=== PATIENT | female | born 1965 | race Two or more races ===

== ENCOUNTER → 2025-02-05 | Outpatient (CLI) | payer MEDICAID, SELFPAY ==
--- NOTE | 2025-02-05 07:00 | XR_ITS ---
Examination: MRI cervical spine without intravenous contrast Date and time of exam: February 05, 2025 0702 hours INDICATIONS: Right-sided neck pain beginning 6 months ago Technique: Multiple axial and sagittal sections of the cervical spine to been obtained. T2 weighted sagittal sections, TR 3, 270, TE 117 T1-weighted sagittal sections, TR 500, TE 11 T1-weighted axial sections, TR 607, TE 12, axial sections TR 18, TE 27 and T2 weighted transverse sections, TR 3920, TE 122. Findings: Mild chronic wedging C6 No acute cervical fracture Intact odontoid Diffuse cervical disc desiccation Moderate to advanced disc narrowing C4-C5, C5-C6, C6-C7 No localized enlargement cervical cord C2-C3 no disc protrusion C3-C4 left uncinate process hypertrophy with moderate narrowing left neural foraminal stenosis C4-C5 2 mm central subarticular osteophyte disc complex, moderate bilateral neural foraminal stenosis C5-C6 right uncinate process hypertrophy moderate right neural foraminal stenosis C6-C7 moderate bilateral neural foraminal stenosis C7-T1 moderate left neural foraminal stenosis IMPRESSION: Moderate to advanced degenerative disc disease C4-C5, C5-C6, C6-C7 C3-C4, C7-T1 moderate left neural foraminal stenosis C4-C5, C6-C7 moderate bilateral neural foraminal stenosis C5-C6 moderate right neural foraminal stenosis
== END | disposition home or self-care (01) ==
LOC: SMRI 06:40
PROVIDERS: Referring Provider Nurse Practitioner; Visit Provider Nurse Practitioner
DX: M50.321 Other cervical disc degeneration at C4-C5 level (principal); M48.02 Spinal stenosis, cervical region
CPT/HCPCS: 72141

== ENCOUNTER 2025-07-12 16:00 | Outpatient (RCR) | payer MEDICAID, SELFPAY ==
--- NOTE | 2025-06-30 13:47 | PTNOTE_ITS ---
PT OP Initial Eval Patient Information Outpatient Physical Therapy Treatment Date: 06/30/25 Visit Reasons: Cervicalgia Medical Diagnosis: M54.2 Treatment Dx #1: neck pain Start of Care: 06/30/25 Date of Onset: 8 months ago Smoking Status Smoking Status: Current some day smoker Cessation Counseling Provided: FRANK was advised that quitting smoking is the single most important factor to protect the health of themselves and their family. Discussed the benefits of quitting smoking with patient. Encouraged patient to quit smoking and provided Cessation assistance materials and resources. Tobacco Use: Cigarette Years smoked: 30 Are you interested in quitting?: Yes Would you like additional Smoking Cessation Counseling?: No Initial Assessment Subjective: Pt is 60 yr old female who c/o neck pain. Her head started leaning to the R 8 months ago and it hurts to turn the head. Increased pain with neck movements and HH chores and the pain goes into the top of the R shoulder but denies hand pain and numbness. PMH: HTN, thyroidism Imaging: MRI of C/S Moderate to advanced degenerative disc disease C4-C5, C5- C6, C6-C7, C3-C4, C7-T1 moderate left neural foraminal stenosis,C4-C5, C6-C7 moderate bilateral neural foraminal stenosis, C5-C6 moderate right neural foraminal stenosis Pt goal: to move my neck better with less pain Objective: C/S AROM: ? Ext 40% with pain at end-range ? Flexion full with slight onset of ssx ? L rotation: 30% with pain R rotation: 30% with pain Bond Writer strength: 55 lbs B ? L SB: unable ? C/S compression: relief ? Distraction: relief ? TTP: moderate of lower C/S paraspinals on R around C4-7 and UT ? B shoulder AROM: full FF ? Flexion rotation test: C1-2 limitations B Observation: fwd head with R SB in sitting and standing Assessment: Pt presents with forward head posture that is also sidebent like torticollis. Pt has very limited sidebending to the L and R sided myofascial tenderness pain of SCM and scalenes. Pt requires skilled therapy to meet goals and has fair rehab potential. Eval followed by HEP printout. Short Term and Furniture Dipper Goals 1. Ind with HEP ? 2. Improved B rotation to 50% of full ? 3. Decreased TTP of lower C/S from mod to min ? 4. Pt will turn head L to R x5 with <=4/10 pain Treatment Plan 1. Manual therapy ? 2. Therex ? 3. Modalities as indicated, mechanical traction, estim, moist heat, ice Frequency and Duration: 1-2x a week for 12 sessions plus the evaluation Certification Dates: 06/30/25 to 09/27/25 Procedure Charges OP PT Eval Mod Complex 30 minutes: Yes
--- NOTE | 2025-07-12 17:09 | PT.ODAYNRPT ---
PT Outpatient Daily Note OP Daily Note Outpatient Physical Therapy Treatment Date: 07/12/25 Visit Reasons: Cervicalgia Subjective: Pt c/o neck pain and states pain increases at the end of day due to work. Presents with cervical lean to the R. Objective: See F/S for therex performed Assessment: Fair tolerance to therex, due to neck pain and ROM limitations. Min vc's required to remain in pain free ROM, pt complied. Performed chin tucks exercise best with mirror to orient to midline before performing chin tuck. Advised to priortize SCM stretch at home, pt able to verbalize and demo stretch post session. Plan: Continue with POC Length of Time (minutes) of Treatment: 30 Minutes Procedure Charges Therapeutic Exercise 30 minutes: Yes
== END 2025-07-13 23:59 | disposition home or self-care (01) ==
LOC: CPTX 16:00
PROVIDERS: PCP Family Medicine; Referring Provider Family Medicine; Visit Provider Family Medicine
DX: M54.2 Cervicalgia (principal); Z71.6 Tobacco abuse counseling; F17.210 Nicotine dependence, cigarettes, uncomplicated; I10 Essential (primary) hypertension
CPT/HCPCS: 97110; 97162

== ENCOUNTER 2025-08-10 16:30 | Outpatient (RCR) | payer MEDICAID, SELFPAY ==
--- NOTE | 2025-07-20 17:42 | PT.ODAYNRPT ---
PT Outpatient Daily Note OP Daily Note Outpatient Physical Therapy Treatment Date: 07/20/25 Visit Reasons: Cervicalgia Subjective: Pt c/o neck pain and states pain increases at the end of day due to work. Presents with cervical lean to the R. Objective: See F/S for therex performed Assessment: Fair tolerance to therex, due to neck pain and ROM limitations. Min vc's required to remain in pain free ROM, pt complied. Performed chin tucks exercise best with mirror to orient to midline before performing chin tuck. Advised to priortize SCM stretch at home, pt able to verbalize and demo stretch post session. Plan: Continue with POC Length of Time (minutes) of Treatment: 30 Minutes Procedure Charges Therapeutic Exercise 30 minutes: Yes
--- NOTE | 2025-08-10 17:00 | PT.ODAYNRPT ---
PT Outpatient Daily Note OP Daily Note Outpatient Physical Therapy Treatment Date: 08/10/25 Visit Reasons: Cervicalgia Subjective: The neck feels about the same Objective: See F/S for therex MT: HVT C1-2 x1 R/L, STM R SCM and paraspinals Assessment: Inconsistent attendance and questionable HEP understanding and compliance with slow progress with neck ROM Plan: Continue with POC Length of Time (minutes) of Treatment: 30 Minutes Procedure Charges Therapeutic Exercise 30 minutes: Yes
--- NOTE | 2025-09-01 18:44 | PT.ODS1RPT ---
PT OP Progress/Discharge Note Date of Service: 09/01/25 Progress Note/DC Note Progress Note/Discharge Note: DC Note Patient Information Visit Reasons: Cervicalgia Service Continue Service or Discharge: Discharge Discharge Date: 09/01/25 Status Assessment: Pt attended the initial evaluation and 3 Rx visits with inconsistent attendance and no showed her last two appointments on 08/12 and 09/01 which is not in compliance with attendance policy. Pt?s attendance is not consistent enough to make progress with goals. Thank you for your referrals. Plan: D/C
== END 2025-08-13 23:59 | disposition home or self-care (01) ==
LOC: CPTX 16:30
PROVIDERS: PCP Family Medicine; Referring Provider Family Medicine; Visit Provider Family Medicine
DX: M54.2 Cervicalgia (principal)
CPT/HCPCS: 97110